=== PATIENT | male | born 1985 | race Caucasian/White ===

== ENCOUNTER 2019-08-09 10:03 | Emergency (ER) | payer OTHER ==
[~2019-08-09] VITALS: Ht 180.3 cm; Wt 131.8 kg
[2019-08-09 10:07] VITALS: Ht 180.3 cm; Wt 131.8 kg
[2019-08-09] MEDS ORDERED: TOPAMAX100 MG PO (10:10)
[2019-08-09] MEDS ORDERED: NEXIUM40 MG PO (10:10)
[2019-08-09] MEDS ORDERED: VALIUM5 MG PO (10:13)
[2019-08-09] MEDS ORDERED: ULTRAM50 MG PO (10:14)
[2019-08-09] MEDS ORDERED: VIAGRA100 MG PO (10:14)
[2019-08-09] MEDS ORDERED: BUSPAR5 MG PO (10:15)
[2019-08-09] MEDS ORDERED: ZOVIRAX800 MG PO (10:15)
[2019-08-09] MEDS ORDERED: LAMICTAL150 M1 PO (10:16)
[2019-08-09] MEDS ORDERED: LAMICTAL25 MG PO (10:16)
[2019-08-09 10:58] LABS: BILIRUBIN NEGATIVE (NEGATIVE); GLUCOSE NEGATIVE (NEGATIVE); KETONE NEGATIVE (NEGATIVE); NITRITE NEGATIVE (NEGATIVE); UROBILINOGEN NORMAL (NORMAL)
[2019-08-09] MEDS ORDERED: NORCO-7.51 TAB PO (11:00)
[2019-08-09] MEDS ORDERED: CYCLOBENZAPRINE10 MG PO (11:00)
[2019-08-09 11:15] VITALS: BP 135/54
[2019-08-09 11:17] LABS: BASOPHILS 0.3 % (0-2); EOSINOPHILS 2.1 % (0-7); HEMATOCRIT 39.5 % (42.0-54.0); HEMOGLOBIN 13.9 g/dL (13.5-17.5); IMMATURE GRANULOCYTES 0.5 % (0-5); LYMPHOCYTES 24.1 % (15-50); MCH 30.5 pg (26.0-34.0); MCHC 35.2 g/dL (31.0-37.0); MCV 86.8 fL (80.0-100.0); MEAN PLATELET VOLUME 10.3 fL (7.4-10.4); MONOCYTES 6.4 % (2-11); NEUTROPHILS 66.6 % (40-80); PLATELET COUNT 195 10x3/uL (130-400); RBC 4.55 10x6/uL (4.20-6.10); RDW 12.9 % (11.5-14.5); WBC 7.7 10x3/uL (4.8-10.8)
[2019-08-09 11:31] LABS: CALC OSMOLALITY 279 mosm/kg (275-300); CALCIUM 8.3 mg/dL (8.5-10.1); CARBON DIOXIDE 26.3 mmol/L (21.0-32.0); CHLORIDE - SERUM 104 mmol/L (98-107); CREATININE - SERUM 1.1 mg/dL (0.6-1.3); GLUCOSE 107 mg/dL (74-106); POTASSIUM - SERUM 3.8 mmol/L (3.5-5.1); SODIUM 141 mmol/L (136-145); UREA NITROGEN 10 mg/dL (7-18); eGFR NON AFRICAN AMERICAN 82 mL/min (90-120)
[2019-08-09 11:38] LABS: ALBUMIN 3.9 g/dL (3.4-5.0); ALKALINE PHOSPHATASE 87 U/L (30-120); ALT (SGPT) 32 U/L (10-68); BILIRUBIN - TOTAL 0.27 mg/dL (0.2-1.3); PROTEIN - SERUM 7.1 g/dL (6.4-8.2)
== END 2019-08-09 12:04 | disposition home or self-care (01) ==
LOC: D.ER 10:03
PROVIDERS: Emergency Medicine
DX: S16.1XXA Strain of muscle, fascia and tendon at neck level, initial encounter (principal); S39.012A Strain of muscle, fascia and tendon of lower back, initial encounter; S00.83XA Contusion of other part of head, initial encounter; M51.36 Other intervertebral disc degeneration, lumbar region; V89.2XXA Person injured in unspecified motor-vehicle accident, traffic, initial encounter; Y93.9 Activity, unspecified; Y92.9 Unspecified place or not applicable; G62.9 Polyneuropathy, unspecified; K21.9 Gastro-esophageal reflux disease without esophagitis